=== PATIENT | female | born 1985 | race African-American/Black ===

== ENCOUNTER 2017-02-11 23:00 | Emergency (ER) | payer OTHER ==
[~2017-02-11] VITALS: Ht 162.6 cm; Wt 104.8 kg
[~2017-02-11 23:00] MED LIST: AFEDITAB CR30 MG PO; CARAFATE1 GM PO; DEPO-PROVER150 MG/ML IM; ERGOCALCIF50000 UNIT PO; GLUCOPHAGE500 MG PO; KEFLEX500 MG PO; LEVEMIR FL100 UNIT/1 SC; LORTAB 5-325 M1 EACH PO; MACROBID100 MG PO; METFORMIN HCL500 M4 PO; METFORMIN HCL500 MG PO; NORCO 5/3251 TABLET PO; OMEPRAZOLE20 M2 PO; OMEPRAZOLE40 M1 PO; PERCOCET 5/31 TABLET PO; PRENATAL TABLE1 EAC3 PO; TRAMADOL HCL50 MG PO; ULTRAM50 MG PO; ZOFRAN ODT4 MG PO; ZOFRAN4 MG PO
[2017-02-11] MEDS ORDERED: NORCO 7.5/321 TABLET PO (23:56)
[2017-02-11] MEDS ORDERED: VALIUM5 MG PO (23:56)
[2017-02-11] MEDS ORDERED: MOTRIN800 MG PO (23:56)
[2017-02-12 01:59] VITALS: BP 110/66
== END 2017-02-12 02:03 | disposition home or self-care (01) ==
LOC: EME 23:00
DX: S39.012A Strain of muscle, fascia and tendon of lower back, initial encounter (principal); S86.112A Strain of other muscle(s) and tendon(s) of posterior muscle group at lower leg level, left leg, initial encounter; S16.1XXA Strain of muscle, fascia and tendon at neck level, initial encounter; S56.912A Strain of unspecified muscles, fascia and tendons at forearm level, left arm, initial encounter; S20.212A Contusion of left front wall of thorax, initial encounter; S50.812A Abrasion of left forearm, initial encounter; S22.20XA Unspecified fracture of sternum, initial encounter for closed fracture; V49.40XA Driver injured in collision with unspecified motor vehicles in traffic accident, initial encounter
CPT/HCPCS: 71020; 71120; 72100; 99281; 99284

== ENCOUNTER 2017-02-14 19:19 | Emergency (ER) | payer OTHER ==
[~2017-02-14] VITALS: Ht 162.6 cm; Wt 104.7 kg
[~2017-02-14 19:19] MED LIST changes: +MOTRIN800 MG PO; +NORCO 7.5/321 TABLET PO; +VALIUM5 MG PO
[2017-02-14] MEDS ORDERED: FLEXERIL10 MG PO (22:48)
[2017-02-14] MEDS ORDERED: NAPROSYN500 MG PO (22:48)
[2017-02-14 23:37] VITALS: BP 113/84
== END 2017-02-14 23:38 | disposition home or self-care (01) ==
LOC: EME 19:19 → EXP 19:19
DX: M54.9 Dorsalgia, unspecified (principal); V89.2XXA Person injured in unspecified motor-vehicle accident, traffic, initial encounter
CPT/HCPCS: 99281; 99283